=== PATIENT | male | born 1965 | race Two or more races ===

== ENCOUNTER 2022-08-06 10:13 | Inpatient (IN) | payer MEDICAID, OTHER ==
[~2022-08-06] VITALS: Ht 162.6 cm; Wt 62.7 kg
[2022-08-06 13:23] LABS: Basophils # (auto) 0 10 ^3/uL (0-0.2); Basophils % (auto) 0.8 % (0.0-2.0); Eosinophils # (auto) 0.1 10 ^3/uL (0-0.8); Eosinophils % (auto) 1.2 % (0.0-7.0); Hematocrit 42.6 % (41.0-53.0); Hemoglobin 14.9 g/dL (13.5-17.5); Lymphocytes # (auto) 2.3 10 ^3/uL (0.4-5.4); Lymphocytes % (auto) 37.5 % (10.0-50.0); Mean Corpuscular Hemoglobin 29.1 pg (28.0-32.0); Mean Corpuscular Volume 83.2 fL (80.0-100.0); Monocytes # (auto) 0.5 10 ^3/uL (0-1.3); Monocytes % (auto) 7.7 % (0.0-12.0); Neutrophils # (auto) 3.3 10 ^3/uL (1.6-8.6); Neutrophils % (auto) 52.8 % (37.0-80.0); Nucleated Red Blood Cells % 0.3 %; Red Blood Cells 5.12 10^6/uL (4.5-5.90); White Blood Cell 6.2 10^3/uL (4.4-10.8)
[2022-08-06 13:37] LABS: BUN/Creatinine Ratio 15.4 (10.0-20.0); Calcium 9.5 mg/dL (8.5-10.1); INR 0.97 (0.9-1.15); Magnesium 2.6 mg/dL (1.6-2.6); Partial Thromboplastin Time 26.5 sec (24.6-33.4)
[2022-08-06 13:40] LABS: Bilirubin, Total 0.5 mg/dL (0.2-1.0); Total Protein 7.4 g/dL (6.4-8.2)
[2022-08-06] MEDS ORDERED: DEXTROSE (50%) 50ML SYRG IV PRN (16:45)
[2022-08-06] MEDS ORDERED: ASPirin 325 MG TAB PO ONE (17:00)
[2022-08-06] MEDS ORDERED: hydrALAZINE HCL 20 MG/ML VL IV PRN (17:00)
[2022-08-06] MEDS: ACCU-CHEK COMFORT CURVE STRIP VI SCH (18:00)
[2022-08-06] MEDS: InsuLIN REG 1unit/0.01ml Soln (100units/ml) SC SCH (20:08)
[2022-08-06] MEDS: ATORVASTATIN 20 MG TAB PO SCH (22:20)
[2022-08-07] MEDS: ACCU-CHEK COMFORT CURVE STRIP VI SCH ×5 (06:00→23:55)
[2022-08-07 06:14] LABS: Basophils # (auto) 0.1 10 ^3/uL (0-0.2); Basophils % (auto) 1.2 % (0.0-2.0); Eosinophils # (auto) 0.1 10 ^3/uL (0-0.8); Eosinophils % (auto) 1.8 % (0.0-7.0); Hematocrit 39.1 % (41.0-53.0); Hemoglobin 13.7 g/dL (13.5-17.5); Lymphocytes # (auto) 1.8 10 ^3/uL (0.4-5.4); Mean Corpuscular Hemoglobin 29.6 pg (28.0-32.0); Mean Corpuscular Hgb Conc. 34.9 g/dL (32.0-36.0); Mean Corpuscular Volume 84.8 fL (80.0-100.0); Monocytes # (auto) 0.4 10 ^3/uL (0-1.3); Monocytes % (auto) 8.8 % (0.0-12.0); Neutrophils # (auto) 2.4 10 ^3/uL (1.6-8.6); Neutrophils % (auto) 50.2 % (37.0-80.0); Nucleated Red Blood Cells % 0.1 %; Red Blood Cells 4.61 10^6/uL (4.5-5.90); Red Cell Distribution Width 12.9 % (11.8-14.3); White Blood Cell 4.7 10^3/uL (4.4-10.8)
[2022-08-07 06:29] LABS: Calcium 8.7 mg/dL (8.5-10.1); Potassium 3.7 mmol/L (3.5-5.1)
[2022-08-07 06:35] LABS: Albumin 3.2 g/dL (3.4-5.0); BUN/Creatinine Ratio 20.4 (10.0-20.0); Bilirubin, Total 0.3 mg/dL (0.2-1.0); Total Protein 6.6 g/dL (6.4-8.2)
[2022-08-07 06:45] LABS: Alcohol, Urine < 3.0 mg/dL (0-10); Amphetamine Screen, Urine NEGATIVE (NEGATIVE); Barbiturate Scree,Urine NEGATIVE (NEGATIVE); Benzodiazephine Screen, Urine NEGATIVE (NEGATIVE); Cannabinoid Screen, Urine NEGATIVE (NEGATIVE); Cocaine Screen, Urine NEGATIVE (NEGATIVE); Opiate Scree,Urine NEGATIVE (NEGATIVE); Phencyclidine Screen, Urine NEGATIVE (NEGATIVE)
[2022-08-07] MEDS: InsuLIN REG 1unit/0.01ml Soln (100units/ml) SC SCH ×5 (06:45→23:55)
[2022-08-07] MEDS ORDERED: ASPirin 81 mg TAB PO SCH (10:00)
[2022-08-07] MEDS ORDERED: ASPirin 325 MG TAB PO SCH (10:00)
[2022-08-07] MEDS: ENOXAPARIN SOD 40 MG/0.4 ML SYRINGE SC SCH (10:38)
[2022-08-07] MEDS: ASPirin 81 mg TAB PO SCH (10:38)
[2022-08-07] MEDS ORDERED: LABETALOL HCL 5 MG/ML ML 20ML VIAL IV PRN (11:00)
[2022-08-07] MEDS ORDERED: LORazepam 0.5 MG TAB PO PRN (11:00)
[2022-08-07] MEDS ORDERED: ACETAMINOPHEN 500 MG TAB PO PRN (11:00)
[2022-08-07] MEDS ORDERED: traMADol HCL 50 MG TAB PO PRN (11:00)
[2022-08-07] MEDS ORDERED: MORPHINE SULFATE INJ 2 MG/ml SYRG IV PRN (11:00)
[2022-08-07] MEDS ORDERED: ONDANSETRON HCL 4 MG/2 ML VIAL IV PRN (11:00)
[2022-08-07 12:08] LABS: Cholesterol 125 mg/dL (< 200)
[2022-08-07 12:11] LABS: Creatine Kinase IFCC 82 U/L (39-308); HDL Cholesterol 29 mg/dL (40-59); LDL Cholesterol 77 mg/dL (< 100); Triglycerides 208 mg/dL (< 150)
[2022-08-07] MEDS ORDERED: FENO145T27 PO (15:05)
[2022-08-07] MEDS ORDERED: GLIP10TA9 PO (15:05)
[2022-08-07] MEDS ORDERED: ASPI-325 PO (15:05)
[2022-08-07] MEDS ORDERED: METF-372 PO (15:05)
[2022-08-07] MEDS ORDERED: SIMV-13 PO (15:05)
[2022-08-07] MEDS ORDERED: INSUINJ2 SC (15:05)
[2022-08-07 17:00] VITALS: BP 114/71
[2022-08-07] MEDS: ATORVASTATIN 20 MG TAB PO SCH (21:20)
[2022-08-07 22:00] VITALS: BP 110/62
[2022-08-08 04:48] VITALS: BP 112/66
[2022-08-08] MEDS: InsuLIN REG 1unit/0.01ml Soln (100units/ml) SC SCH ×3 (05:49→18:02)
[2022-08-08] MEDS: ACCU-CHEK COMFORT CURVE STRIP VI SCH ×3 (05:50→17:58)
[2022-08-08 08:30] VITALS: BP 118/69
[2022-08-08 09:00] VITALS: BP 118/69
[2022-08-08 09:03] LABS: Folate (Folic Acid) 21.43 ng/mL (5.38-24)
[2022-08-08] MEDS: ENOXAPARIN SOD 40 MG/0.4 ML SYRINGE SC SCH (09:58)
[2022-08-08] MEDS: ASPirin 81 mg TAB PO SCH (09:58)
[2022-08-08 13:00] VITALS: BP 116/80
[2022-08-08 14:29] LABS: Hepatitis C Antibody Negative (Negative)
[2022-08-08 16:42] VITALS: BP 117/67
[2022-08-08] MEDS: ATORVASTATIN 20 MG TAB PO SCH (21:31)
[2022-08-08 22:00] VITALS: BP 119/67
[2022-08-09] MEDS: ACCU-CHEK COMFORT CURVE STRIP VI SCH ×3 (00:07→12:00)
[2022-08-09] MEDS: InsuLIN REG 1unit/0.01ml Soln (100units/ml) SC SCH ×3 (00:07→12:00)
[2022-08-09 05:00] VITALS: BP 118/76
[2022-08-09 09:00] VITALS: BP 108/72
[2022-08-09] MEDS: ENOXAPARIN SOD 40 MG/0.4 ML SYRINGE SC SCH (11:01)
[2022-08-09] MEDS: ASPirin 81 mg TAB PO SCH (11:01)
[2022-08-09 12:00] VITALS: BP 117/76
== END 2022-08-09 12:41 | disposition home or self-care (01) | DRG 48 ==
LOC: ER 10:13 → TELE 16:45 → TELE-WESTW 08-07 14:05
PROVIDERS: ADMIT Nurse Practitioner Family; ATTEND Internal Medicine
DX: E11.41 Type 2 diabetes mellitus with diabetic mononeuropathy (principal); H49.21 Sixth [abducent] nerve palsy, right eye; E11.65 Type 2 diabetes mellitus with hyperglycemia; H51.21 Internuclear ophthalmoplegia, right eye; E78.5 Hyperlipidemia, unspecified; H53.2 Diplopia; I10 Essential (primary) hypertension; F17.200 Nicotine dependence, unspecified, uncomplicated; Z79.82 Long term (current) use of aspirin; Z79.899 Other long term (current) drug therapy; Z82.49 Family history of ischemic heart disease and other diseases of the circulatory system
CPT/HCPCS: 36415; 70450; 70551; 71045; 80053; 80061; 80307; 82550; 82607; 82746; 82962; 83036; 83735; 83880; 84443; 84484; 85025; 85610; 85652; 85730; 86803; 87340; 93306; 93886; 96372; 97110; 97116; 97163; 97530; G0378; J1815